=== PATIENT | female | born 1970 | race Caucasian/White ===

== ENCOUNTER → 2019-07-01 09:06 | Outpatient (CLI) | payer SELFPAY ==
--- NOTE | 2019-07-01 | DI.RAD.S_ITS ---
PROCEDURE: XR CHEST 2V INDICATIONS: Cough TECHNIQUE: 2 views of the chest were acquired. COMPARISON: None. FINDINGS: Surgical changes and devices: Cholecystectomy clips are seen on the lateral view. Lungs and pleura: Lungs are clear. No pleural effusions or pneumothorax. Mediastinum: Mediastinal contours are normal. Heart size is normal. Bones and chest wall: No suspicious bony abnormalities. Age-appropriate bony degenerative changes are seen. Soft tissues appear unremarkable. IMPRESSION: Unremarkable chest examination for age, without infiltrates. Dictated by: Dorian Gutierrez M.D. on 07/01/2019 at 8:46 Approved by: Dorian Gutierrez M.D. on 07/01/2019 at 8:47
== END ==
PROVIDERS: PCP Internal Medicine; Referring Provider Internal Medicine; Visit Provider Internal Medicine
DX: R05 Cough (principal)
CPT/HCPCS: 71046

== ENCOUNTER → 2019-11-16 09:35 | Outpatient (CLI) | payer OTHER, MEDICAID, SELFPAY ==
--- NOTE | 2019-11-16 | DI.MG.S_ITS ---
BILATERAL DIGITAL SCREENING MAMMOGRAM 3D/2D WITH CAD: 11/16/2019 CLINICAL: Routine screening. Family history of breast cancer. Comparison is made to exams dated: 02/10/2015 mammogram and 08/18/2008 mammogram - [facility] [address]. There are scattered fibroglandular elements in both breasts. Current study was also evaluated with a Computer Aided Detection (CAD) system. There are benign intramammary nodes in the right breast. No significant masses, calcifications, or other findings are seen in either breast. There has been no significant interval change. IMPRESSION: BENIGN There is no mammographic evidence of malignancy. A 1 year screening mammogram is recommended. This exam was interpreted at Station ID: [id number]. NOTE: For mammograms, a report in lay terms will be sent to the patient. Approximately 15% of breast malignancies will not be visualized mammographically. In the management of a palpable breast mass, a negative mammogram must not discourage biopsy of a clinically suspicious lesion. Electronically Signed By: Sunday cunningham/radha:11/18/2019 07:48:40 letter sent: Normal Exam ACR BI-RADS Category 2: Benign Finding(s) 3342F
== END ==
PROVIDERS: PCP Internal Medicine; Referring Provider Internal Medicine; Visit Provider Internal Medicine
DX: Z12.31 Encounter for screening mammogram for malignant neoplasm of breast (principal); Z80.3 Family history of malignant neoplasm of breast
CPT/HCPCS: 77063; 77067

== ENCOUNTER → 2019-11-29 09:19 | Outpatient (CLI) | payer OTHER, MEDICAID, SELFPAY | PROVIDERS: PCP Internal Medicine; Visit Provider Physician Assistant | DX: R30.0 Dysuria (principal) | CPT/HCPCS: 87077; 87086; 87186 ==

== ENCOUNTER → 2020-06-05 16:57 | Outpatient (CLI) | payer OTHER, MEDICAID, SELFPAY ==
[2020-06-05 17:37] LABS: COVID19 -Nasal RAPID Negative (Negative)
== END ==
PROVIDERS: Visit Provider Physician Assistant
DX: R05 Cough (principal); Z20.822 Contact with and (suspected) exposure to COVID-19
CPT/HCPCS: 87635

== ENCOUNTER → 2020-06-17 15:46 | Outpatient (CLI) | payer OTHER, MEDICAID, SELFPAY ==
[2020-06-17] MEDS: COVID-19 VACC, Ad26(JANSSEN)/PF 0.5 ML IM (15:57)
== END ==
PROVIDERS: Visit Provider Internal Medicine
DX: Z23 Encounter for immunization (principal)
CPT/HCPCS: 0031A; 91303

== ENCOUNTER → 2020-07-10 09:46 | Outpatient (CLI) | payer OTHER, MEDICAID, SELFPAY ==
[2020-07-10 10:06] LABS: Add Manual Diff / Slide Review NO; Basophils Absolute Auto 100 /uL (0-100); Basophils Percent Auto 0.9 % (0-2); Eosinophils Absolute Auto 200 /uL (0-450); Eosinophils Percent Auto 2.6 % (2-4); Hemoglobin 14.6 g/dL (12.0-16.0); Lymphocytes Absolute Auto 1600 /uL (1100-4500); Lymphocytes Percent Auto 26.7 % (25-40); Mean Corpuscular HGB Conc 33.2 % (30-36); Mean Corpuscular Hemoglobin 29.6 PG (26-34); Mean Corpuscular Volume 89.3 fL (80-100); Monocytes Absolute Auto 400 /uL (0-900); Monocytes Percent Auto 6.6 % (3-14); Neutrophils Absolute Auto 3900 /uL (1500-7000); Neutrophils Percent Auto 63.2 % (50-75); Platelet Count 281 X10^3/uL (150-400); Red Blood Cell Count 4.92 X10^6/uL (4.0-5.2); Red Cell Distribution Width 12.8 % (11.6-14.8); White Blood Cell Count 6.1 X10^3/uL (4.5-11.0)
[2020-07-10 10:36] LABS: Alanine Aminotransferase 31 IU/L (<35); Albumin 4.2 g/dL (3.5-5.0); Albumin Globulin Ratio 1.4 (1.0-2.8); Alkaline Phosphatase 80 U/L (38-126); Aspartate Aminotransferase 27 IU/L (14-36); BUN Creatinine Ratio 17.7 (6-22); Bilirubin Total 0.3 mg/dL (0.2-1.3); Blood Urea Nitrogen 14 mg/dL (7-17); Calcium 9.5 mg/dL (8.4-10.2); Carbon Dioxide 29 mmol/L (22-32); Chloride 105 mmol/L (98-107); Cholesterol 214 mg/dL (140-199); Estimated Glomerular Filt Rate > 60.0 mL/min (>60); Glucose 110 mg/dL (70-100); HDL Cholesterol 47 mg/dL (40-60); HEMOLYSIS < 15 (0-50); LDL Cholesterol Calculated 126 mg/dL (<100); Potassium 4.3 mmol/L (3.4-5.1); Sodium 142 mmol/L (137-145); Total Protein 7.2 g/dL (6.3-8.2); Triglycerides 204 mg/dL (35-150)
[2020-07-10 10:57] LABS: TSH w/ Reflex to FT4 1.03 uIU/mL (0.47-4.68)
== END ==
PROVIDERS: PCP Family Medicine; Referring Provider Family Medicine; Visit Provider Family Medicine
DX: I10 Essential (primary) hypertension (principal); Z12.31 Encounter for screening mammogram for malignant neoplasm of breast; Z13.220 Encounter for screening for lipoid disorders; Z13.228 Encounter for screening for other metabolic disorders; Z13.29 Encounter for screening for other suspected endocrine disorder; Z76.89 Persons encountering health services in other specified circumstances
CPT/HCPCS: 36415; 80053; 80061; 84443; 85025

== ENCOUNTER 2020-07-12 11:47 | Emergency (ER) | payer OTHER, MEDICAID, SELFPAY ==
[2020-07-12] VITALS (9 sets, daily range): BP systolic 139–175; BP diastolic 69–109; PULSE 58–83; RESP 11–20; TEMP 36.6; O2SAT 95–99; BMI 37.3
--- NOTE | 2020-07-12 11:52 | DI.RAD.S_ITS ---
PROCEDURE: XR CHEST 1V INDICATIONS: chest pain TECHNIQUE: One view of the chest was acquired. COMPARISON: [facility], CR, XR CHEST 2V, 07/01/2019, 9:05. FINDINGS: Surgical changes and devices: None. Lungs and pleura: Lungs are clear. No pleural effusions or pneumothorax. Mediastinum: Mediastinal contours appear normal. Heart size is normal. Bones and chest wall: No suspicious bony lesions. Overlying soft tissues appear unremarkable. IMPRESSION: No acute cardiopulmonary abnormality. Dictated by: Chris Evans M.D. on 07/12/2020 at 11:33 Approved by: Chris Evans M.D. on 07/12/2020 at 11:33
[2020-07-12 12:19] LABS: Add Manual Diff / Slide Review NO; Basophils Absolute Auto 100 /uL (0-100); Basophils Percent Auto 1.2 % (0-2); Eosinophils Absolute Auto 100 /uL (0-450); Eosinophils Percent Auto 2.3 % (2-4); Hematocrit 44.5 % (36-46); Lymphocytes Absolute Auto 2200 /uL (1100-4500); Mean Corpuscular HGB Conc 33.6 % (30-36); Mean Corpuscular Hemoglobin 29.8 PG (26-34); Mean Corpuscular Volume 88.6 fL (80-100); Monocytes Absolute Auto 500 /uL (0-900); Monocytes Percent Auto 8.4 % (3-14); Neutrophils Absolute Auto 3000 /uL (1500-7000); Neutrophils Percent Auto 51.1 % (50-75); Platelet Count 283 X10^3/uL (150-400); Red Blood Cell Count 5.02 X10^6/uL (4.0-5.2); Red Cell Distribution Width 12.7 % (11.6-14.8)
[2020-07-12 12:21] LABS: Prothrombin Time 10.9 SECONDS (10.1-12.7)
[2020-07-12 12:24] LABS: PTT Partial Thromboplastin Tim 33 SECONDS (26.4-36.2)
[2020-07-12 12:26] LABS: Alanine Aminotransferase 30 IU/L (<35); Albumin 4.4 g/dL (3.5-5.0); Albumin Globulin Ratio 1.3 (1.0-2.8); Alkaline Phosphatase 77 U/L (38-126); Aspartate Aminotransferase 26 IU/L (14-36); BUN Creatinine Ratio 22.4 (6-22); Bilirubin Total 0.3 mg/dL (0.2-1.3); Blood Urea Nitrogen 17 mg/dL (7-17); Calcium 9.8 mg/dL (8.4-10.2); Carbon Dioxide 26 mmol/L (22-32); Chloride 104 mmol/L (98-107); Creatine Kinase 36 U/L (30-135); Estimated Glomerular Filt Rate > 60.0 mL/min (>60); Globulin 3.4 g/dL (1.7-4.1); Glucose 100 mg/dL (70-100); HEMOLYSIS < 15 (0-50); Lipase 43 U/L (23-300); Potassium 3.9 mmol/L (3.4-5.1); Sodium 139 mmol/L (137-145); Total Protein 7.8 g/dL (6.3-8.2)
--- NOTE | 2020-07-12 12:26 | PC.NURSE ---
pt states her losartan was increased and she was started on HCTZ. woke up this morning with heaviness in chest, tingling and nunbness in all extremities and lightheadedness. appears well. in good color. bp 170/93 HR 70 NSR. lungs clear.
--- NOTE | 2020-07-12 12:34 | ED.CHESTPAIN ---
HPI - Chest Pain General Chief Complaint: Chest Pain Stated Complaint: Chest Pain, Tingling Hands/Feet, Face Feels Funny Time Seen by Provider: 07/12/20 12:33 Source: patient Mode of arrival: Ambulatory Limitations: no limitations History of Present Illness HPI narrative: Patient is a 50-year-old female history of hypertension noncompliant with medication presenting with chest discomfort. She was previously on losartan in did not feel well taking it so she stopped taking it in March. She was receding by a new primary care provider who started her on combination of losartan and hydrochlorothiazide. Is having some mild and chest discomfort prior to taking the medication 2 days ago but since then he has had worsening chest discomfort numbness tingling in extremities generally feeling weak. She denies any shortness of breath no fever or chills no dizziness lightheadedness or passing out. She says that her life is full of stressors. 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 She describes her chest pain as pressure points around the left side of her chest and sternum. They are Nonradiating. MD complaint: chest pain Duration: intermittent Onset: during rest and during exertion Pain location: substernal and left chest Quality: aching and dull Pain radiation: none Relieving factors: nothing Related Data Previous Rx's Medication Instructions Recorded losartan 50 mg-hydrochlorothiazide 1 tab PO DAILY #90 tab 07/10/20 12.5 mg tablet hydrochlorothiazide 12.5 mg PO DAILY #14 tab 07/12/20 Allergies Allergy/AdvReac Type Severity Reaction Status Date / Time hydrocodone [From Vicodin] AdvReac Intermediate GI Upset Verified 07/10/20 09:10 Review of Systems Review of Systems ROS Unobtainable: All systems reviewed & are unremarkable except as noted in HPI and below Constitutional Constitutional: Reports body ache(s), Denies chills, Denies headache(s) and Reports weakness Eyes Eyes: Denies change in vision, Denies eye discharge, Denies irritation and Denies loss of vision ENT Ears, Nose, Mouth, and Throat: Denies headache(s) Cardiovascular Cardiovascular: Reports as per HPI, Reports chest pain, Reports chest pain at rest, Denies irregular heart rhythm, Denies leg edema, Denies palpitations and Denies dyspnea on exertion Respiratory Respiratory: Denies cough and Denies dyspnea on exertion Gastrointestinal Gastrointestinal: Denies abdominal pain, Reports nausea and Denies vomiting Musculoskeletal Musculoskeletal: Denies back pain and Reports arthralgias (elbows) Integumentary/Breasts Skin/Breast: Denies pruritus, Denies erythema, Denies rash and Denies wounds Neurologic Neurologic: Denies headache(s), Denies loss of vision and Reports weakness Endocrine Endocrine: Denies palpitations Patient History Medical History UTI (urinary tract infection) Social History Smoking Status: Former smoker alcohol intake: current (4 drinks per week ) substance use type: does not use Smoking Status: Former smoker alcohol intake frequency: holidays/special occasions only Substance Use Type: does not use Exam Initial Vital Signs Initial Vital Signs: Vital Signs Temperature 97.8 F 07/12/20 11:50 Pulse Rate 77 07/12/20 11:50 Respiratory Rate 18 07/12/20 11:50 Blood Pressure 175/109 H 07/12/20 11:50 Pulse Oximetry 97 07/12/20 11:50 GENERAL: Alert pleasant 50-year-old female appears in high stress HEENT: Head atraumatic,EOMI, pupils reactive, face symmetric, moist mucous membranes CARDIOVASCULAR: Regular rate and rhythm without murmurs, rubs or gallops. RESPIRATORY: Breath sounds equal bilaterally, no wheezes rales or rhonchi. ABDOMEN: Soft, nontender. Normoactive bowel sounds all 4 quadrants. No guarding or rebound. EXTREMITIES: Normal range of motion, no clubbing or edema. Neurovascularly intact NEUROLOGICAL: Alert and oriented x4.Normal gait and speech. Cranial nerves II through XII grossly intact. SKIN: Warm, dry, no laceration, no petechiae, no rashes or lesions. Scores GCS Renetta coma scale eye opening: Spontaneous [place] coma scale verbal response: Orientated Renetta coma scale motor response: Obey commands Renetta coma scale total score: 15 HEART Score Heart Score history: Slightly Suspicious Heart Score EKG: Normal Heart Score Age: 45-64 years old Heart Score risk factors: 1-2 risk factors Heart Score troponin: < or = to normal limit Heart Score Total: 2 Course Orders Ordered: ED Orders 07/12/20 11:52 XR chest 1V Stat EKG-12 Lead Stat 07/12/20 12:00 Complete Blood Count AUTO DIFF Stat Comprehensive Metabolic Panel Stat Lipase Stat Partial Thromboplastin Time Stat Prothrombin Time INR Stat Troponin & CK Cardiac Panel Stat Discontinued Medications Sodium Chloride (Normal Saline 0.9%) 1,000 mls @ 1,000 mls/hr IV BOLUS ONE Stop: 07/12/20 13:57 Last Admin: 07/12/20 13:02 Dose: 1,000 mls/hr Documented by: MARIELA Vital Signs Vital signs: Vital Signs - 8 hr 07/12/20 11:50 07/12/20 11:53 07/12/20 12:00 Temperature 97.8 F Pulse Rate 77 83 77 Respiratory Rate 18 18 15 Blood Pressure 175/109 H 175/109 H 170/93 H Pulse Oximetry 97 98 97 07/12/20 12:30 07/12/20 13:00 07/12/20 13:30 Temperature Pulse Rate 63 65 63 Respiratory Rate 11 L 13 14 Blood Pressure 142/72 H 139/69 Pulse Oximetry 95 96 97 07/12/20 13:31 07/12/20 14:00 07/12/20 14:01 Temperature Pulse Rate 59 L 64 58 L Respiratory Rate 17 20 14 Blood Pressure 160/70 H 160/70 H Pulse Oximetry 99 98 98 MDM - Chest Pain Lab Data Attestation: I reviewed the patient's lab results. Result diagrams: 07/12/20 12:00 07/12/20 12:00 Labs: Lab Results 07/12/20 07/12/20 07/12/20 Range/Units 12:00 12:00 12:00 WBC 6.0 (4.5-11.0) X10^3/uL RBC 5.02 (4.0-5.2) X10^6/uL Hgb 15.0 (12.0-16.0) g/dL Hct 44.5 (36-46) % MCV 88.6 (80-100) fL MCH 29.8 (26-34) PG MCHC 33.6 (30-36) % RDW 12.7 (11.6-14.8) % Plt Count 283 (150-400) X10^3/uL Neut % (Auto) 51.1 (50-75) % Lymph % (Auto) 37.0 (25-40) % Daggett % (Auto) 8.4 (3-14) % Eos % (Auto) 2.3 (2-4) % Baso % (Auto) 1.2 (0-2) % Neut # (Auto) 3000 (2345-9888) /uL Lymph # (Auto) 2200 (0485-6170) /uL Daggett # (Auto) 500 (0-900) /uL Eos # (Auto) 100 (0-450) /uL Baso # (Auto) 100 (0-100) /uL PT 10.9 (10.1-12.7) SECONDS INR 1.0 (0.9-1.3) APTT 33 (26.4-36.2) SECONDS Sodium 139 (137-145) mmol/L Potassium 3.9 (3.4-5.1) mmol/L Chloride 104 (98-107) mmol/L Carbon Dioxide 26 (22-32) mmol/L BUN 17 (7-17) mg/dL Creatinine 0.76 (0.52-1.04) mg/dL Estimated GFR > 60.0 (>60) mL/min BUN/Creatinine Ratio 22.4 H (6-22) Glucose 100 (70-100) mg/dL Calcium 9.8 (8.4-10.2) mg/dL Total Bilirubin 0.3 (0.2-1.3) mg/dL AST 26 (14-36) IU/L ALT 30 (<35) IU/L Alkaline Phosphatase 77 (38-126) U/L Total Creatine Kinase 36 (30-135) U/L CK-MB (CK-2) TNP CK-MB (CK-2) Rel Index TNP Troponin I < 0.012 (0.01-0.034) ng/mL Total Protein 7.8 (6.3-8.2) g/dL Albumin 4.4 (3.5-5.0) g/dL Globulin 3.4 (1.7-4.1) g/dL Albumin/Globulin Ratio 1.3 (1.0-2.8) Lipase 43 (23-300) U/L Imaging Data Chest x-ray: Radiologist's Impression: PROCEDURE: XR CHEST 1V INDICATIONS: chest pain TECHNIQUE: One view of the chest was acquired. COMPARISON: [facility], CR, XR CHEST 2V, 07/01/2019, 9:05. FINDINGS: Surgical changes and devices: None. Lungs and pleura: Lungs are clear. No pleural effusions or pneumothorax. Mediastinum: Mediastinal contours appear normal. Heart size is normal. Bones and chest wall: No suspicious bony lesions. Overlying soft tissues appear unremarkable. IMPRESSION: No acute cardiopulmonary abnormality. Dictated by: Chris Evans M.D. on 07/12/2020 at 11:33 ECG Data Attestation: I personally reviewed and interpreted this ECG as follows: Prior ECG tracings: available for review Interpretation: Normal sinus rhythm rate 68 p.r. interval 180 QRS [address] changes or T-wave inversions MDM Narrative Medical decision making narrative: Patient is chest pain and other symptoms are likely related to blood pressure medication and stress. She is feeling better after normal saline blood pressure is variable. She is hesitant to take any more medication however at this time I will separate losartan hydrochlorothiazide and recommend that she take hydrochlorothiazide and see if she has any type of reaction. Discharge Plan Departure Patient Disposition: Home Clinical Impression: Medication reaction Qualifiers: Encounter type: initial encounter Qualified Code(s): T50.905A - Adverse effect of unspecified drugs, medicaments and biological substances, initial encounter Hypertension Qualifiers: Hypertension type: unspecified Qualified Code(s): I10 - Essential (primary) hypertension Instructions: DI for Atypical Chest Pain Activity Restrictions/Additional Instructions: *You have been diagnosed with atypical chest pain *What to do: At this time your feeling are likely related to medication and lots of stress. If you do not want to take high blood pressure medication I recommend diet and exercise. *Continue to take medications as directed Hydrochlorothiazide 12.5 mg once daily-->SENT TO [facility] *Follow up with your primary care provider in 2-3 days *Return to ER if you should have chest pain, shortness of breath dizziness lightheadedness or any new, worsening or concerning symptoms Prescriptions: New hydrochlorothiazide 12.5 mg tablet 12.5 mg PO DAILY Qty: 14 RF: 0 No Action losartan-hydrochlorothiazide 50-12.5 mg tablet 1 tab PO DAILY Qty: 90 RF: 1 Referrals: Chris Law, [Primary Care Provider] -
[2020-07-12 12:38] LABS: Troponin I < 0.012 ng/mL (0.01-0.034)
[2020-07-12] MEDS: SODIUM CHLORIDE 0.9% 1,000 ML 1000 ML IV (13:02)
--- NOTE | 2020-07-24 16:07 | PC.NURSE ---
late entry, NS infusion stopped with IV stop time of 1430
== END 2020-07-12 14:32 | disposition home or self-care (01) ==
PROVIDERS: Emergency Provider Emergency Medicine; PCP Family Medicine
DX: R07.89 Other chest pain (principal); I10 Essential (primary) hypertension; T50.2X5A Adverse effect of carbonic-anhydrase inhibitors, benzothiadiazides and other diuretics, initial encounter
CPT/HCPCS: 36415; 71045; 80053; 82550; 83690; 84484; 85025; 85610; 85730; 93005; 96360; 99284

== ENCOUNTER 2020-08-11 07:30 | Outpatient (RCR) | payer OTHER, MEDICAID, SELFPAY ==
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
--- NOTE | 2020-06-10 08:17 | PT.OPPOC ---
Physical, Occupational & Speech Therapy At [facility] Current Diagnoses Other deformities of toe(s) (acquired), right foot (06/10/20) Pain in right foot (06/10/20) Pain in left foot (06/10/20) Difficulty in walking, not elsewhere classified (06/10/20) Abnormal posture (06/10/20) Weakness (06/10/20) Visit Care Team Role Provider Type Doctor Diaz, Primary Care Provider Non-Staff Specialty: Medical Address: Phone: Fax: Email: Dmitry Cevallos DPM Attending Provider Non-Staff Referring Provider Specialty: Podiatry Address: [address] [place] [address], [phone] Email: Plan Of Care PT-OP-T Assessment and Plan Start: 04/02/20 15:06 Freq: Status: Active Protocol: Document 06/10/20 07:28 [facility] (Rec: 06/10/20 08:17 [facility] [id number]) Physical Therapy Assessment Goals activities Short Term Goal (STG) Pt will be able to descend stairs B without inc pain.\ 06/10-n/t STG Duration 07/11/20 Filament Cutter Goal (LTG) Pt will be able to walk and hike on any surfaces without inc in pain greater than 3/10 in B feet. 3/3-has done yard work & walking for short distances only LTG Duration 08/10/20 strength Short Term Goal (STG) Pt will be indep with HEP STG Duration achieved Prison Goal (LTG) Pt will score 5/5 in hip, ankle, and knee strengthen and 3/5 for LPM to show improved stability in order to allow her to participate in typical activities without increased pain. 06/10-progress as needed LTG Duration 08/10/20 balance Short Term Goal (STG) Pt will be able to SLS B without lat lean or arms for balance for 15 sec B STG Duration achieved Prison Goal (LTG) Pt will be able to SLS B without lat lean or use of arms for balance for 30 sec B /3-improving LTG Duration 08/10/20 FAAM Impairment 45/84 Short Term Goal (STG) Pt will score at least 55/84 to show improved functional ability. 06/10-n/t STG Duration 07/11/20 Prison Goal (LTG) Pt will score at least 74/84 to show improved functional ability. LTG Duration 08/10/20 Assessment Summary Assessment Pt did well with exercises but did require cuieng for squats and lunges for form and was encouraged to do self massage to tib ant along w/calf stretching. She is making good progress with strength and ROM especially L side with still limitaiton on R ankle likely d/t surgery. She is c/o intermittant pain vs consistant painand would bneeift from cont PT to cont to work on ankle & foot mobility Physical Therapy Plan Frequency and Duration Frequency of Treatment 1-2x Duration of Treatment 2 months Plan of Care Start Date 06/10/20 Plan of Care End Date 08/10/20 Therapeutic Interventions Therapeutic Interventions Aquatic Therapy,Balance Training,Gait Training,Home Exercise Program,Joint Mobilizations,Manual Therapy, Neuromuscular Re-education, Patient/Caregiver Education, Self-Care/Home Management,Soft Tissue Mobilization,Taping, Therapeutic Activities, Therapeutic Exercises Modalities Cold Pack/Ice Massage,Electric Stimulation,Hot Packs, Infrared Therapy,Iontophoresis ,Ultrasound Next Visit Focus/Plan Next Note Type Treatment Note Next Visit Plan review squats and lunges , cont to work on hip stability & balance, work on manual & work on push off & gait mechanics Plan of Care Dates Plan of Care Start Date 06/10/20 Plan of Care End Date 08/10/20 Electronically Signed by: Mari Thapa, PT 06/10/20 1161 Please Sign and Return: I have reviewed this Plan of Care and certify that the skilled therapy services above are required to meet the patient?s needs. Physician Signature Date Printed Name and Credentials Clinical Instructor Signature Printed Name and Credentials
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
--- NOTE | 2020-08-11 08:58 | PT.OPPOC ---
Physical, Occupational & Speech Therapy At [facility] Current Diagnoses Other deformities of toe(s) (acquired), right foot (08/11/20) Pain in right foot (08/11/20) Pain in left foot (08/11/20) Difficulty in walking, not elsewhere classified (08/11/20) Abnormal posture (08/11/20) Weakness (08/11/20) Visit Care Team Role Provider Type Doctor Diaz, Primary Care Provider Non-Staff Specialty: Medical Address: Phone: Fax: Email: Dmitry Cevallos DPM Attending Provider Non-Staff Referring Provider Specialty: Podiatry Address: [address] [place] [address], [phone] Email: Plan Of Care PT-OP-T Assessment and Plan Start: 04/02/20 15:06 Freq: Status: Active Protocol: Document 08/11/20 07:28 [facility] (Rec: 08/11/20 08:18 [facility] [id number]) Physical Therapy Assessment Goals activities Short Term Goal (STG) Pt will be able to descend stairs B without inc pain.\ 3/3-n/t STG Duration achieved-just feels unsteady Half-Way Goal (LTG) Pt will be able to walk and hike on any surfaces without inc in pain greater than 3/10 in B feet. 3/3-has done yard work & walking for short distances only LTG Duration has gone for short walks, down hill unsteady , about a 3-6/ 10 depending strength Short Term Goal (STG) Pt will be indep with HEP STG Duration achieved Out Of School Hours Care Worker Goal (LTG) Pt will score 5/5 in hip, ankle, and knee strengthen and 3/5 for LPM to show improved stability in order to allow her to participate in typical activities without increased pain. 3/3-progress as needed LTG Duration improved significntly to cont HEP balance Short Term Goal (STG) Pt will be able to SLS B without lat lean or arms for balance for 15 sec B STG Duration achieved Half-Way Goal (LTG) Pt will be able to SLS B without lat lean or use of arms for balance for 30 sec B 3/3-improving LTG Duration L achieved, R about 15 sec FAAM Impairment 45/84 Short Term Goal (STG) Pt will score at least 55/84 to show improved functional ability. 3-n/t STG Duration achieved Half-Way Goal (LTG) Pt will score at least 74/84 to show improved functional ability. LTG Duration 72/84 improved Assessment Summary Assessment Pt has made a lot of improvement towards goals and is progressing well. She is to dc at this time to [facility]. She is encouraged to cont walking and w/activity. She has tightness still in ant ramos and is enocuraged to do STM. Exercises reviewed with important notes re: form Physical Therapy Plan Frequency and Duration Frequency of Treatment 1x/Week Duration of Treatment 1 day Plan of Care Start Date 08/11/20 Plan of Care End Date 08/11/20 Therapeutic Interventions Therapeutic Interventions Aquatic Therapy,Balance Training,Gait Training,Home Exercise Program,Joint Mobilizations,Manual Therapy, Neuromuscular Re-education, Patient/Caregiver Education, Self-Care/Home Management,Soft Tissue Mobilization,Taping, Therapeutic Activities, Therapeutic Exercises Modalities Cold Pack/Ice Massage,Electric Stimulation,Hot Packs, Infrared Therapy,Iontophoresis ,Ultrasound Discharge Physical Therapy Discharge Reasons Goals Met Plan of Care Dates Plan of Care Start Date 08/11/20 Plan of Care End Date 08/11/20 Electronically Signed by: Mari Thapa, PT 08/11/20 0858 Please Sign and Return: I have reviewed this Plan of Care and certify that the skilled therapy services above are required to meet the patient?s needs. Physician Signature Date Printed Name and Credentials Clinical Instructor Signature Printed Name and Credentials
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
== END 2020-08-12 13:14 | disposition home or self-care (01) ==
LOC: PHYS 07:30
PROVIDERS: Referring Provider Podiatrist Foot & Ankle Surgery; Visit Provider Podiatrist Foot & Ankle Surgery
DX: M20.5X1 Other deformities of toe(s) (acquired), right foot (principal); M79.672 Pain in left foot; M79.671 Pain in right foot; R53.1 Weakness; R26.2 Difficulty in walking, not elsewhere classified; R29.3 Abnormal posture
CPT/HCPCS: 97110; 97112; 97116; 97140; 97162; 97530; 97535

== ENCOUNTER → 2020-09-23 07:37 | Outpatient (CLI) | payer OTHER, MEDICAID, SELFPAY ==
[2020-09-23 08:23] LABS: COVID19 -Nasal RAPID Negative (Negative)
== END ==
PROVIDERS: PCP Family Medicine; Visit Provider Nurse Practitioner Family
DX: R05 Cough (principal); R09.81 Nasal congestion; R51.9 Headache, unspecified; Z20.822 Contact with and (suspected) exposure to COVID-19
CPT/HCPCS: 87635

== ENCOUNTER 2020-10-05 11:55 | Emergency (ER) | payer OTHER, SELFPAY ==
[2020-10-05 12:01] VITALS: BP 186/87; PULSE 86; RESP 20; TEMP 37.1; O2SAT 97
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
[2020-10-05] MEDS: KETOROLAC 30 MG/ML VIAL IM (13:18)
[2020-10-05 14:05] VITALS: BP 155/85; PULSE 60; RESP 18
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
== END 2020-10-05 14:22 | disposition home or self-care (01) ==
PROVIDERS: Emergency Provider Emergency Medicine; PCP Family Medicine
DX: S16.1XXA Strain of muscle, fascia and tendon at neck level, initial encounter (principal); R51.9 Headache, unspecified; R25.2 Cramp and spasm; V89.2XXA Person injured in unspecified motor-vehicle accident, traffic, initial encounter
CPT/HCPCS: 96372; 99283; J1885

== ENCOUNTER → 2021-02-11 12:08 | Outpatient (CLI) | payer OTHER, MEDICAID, SELFPAY ==
[2021-02-11 12:42] LABS: COVID19 -Nasal RAPID Negative (Negative)
== END ==
PROVIDERS: PCP Family Medicine; Visit Provider Physician Assistant
DX: Z20.822 Contact with and (suspected) exposure to COVID-19 (principal)
CPT/HCPCS: 87635

== ENCOUNTER → 2021-02-17 15:22 | Outpatient (CLI) | payer OTHER, MEDICAID, SELFPAY ==
--- NOTE | 2021-02-17 15:27 | DI.MRI.S_ITS ---
PROCEDURE: MR HEAD/BRAIN WO CON INDICATIONS: Headache, unspecified TECHNIQUE: Non-contrast axial T1 spin echo, axial T2 fast spin echo, sagittal and axial FLAIR, coronal T2 fast spin echo, axial gradient echo, axial diffusion and ADC through the brain. COMPARISON: None. FINDINGS: Image quality: Excellent. CSF spaces: Ventricles appear symmetric in size and shape. Basal cisterns are patent. No extra-axial fluid collections. Brain: No intracranial bleeds or mass effects. There is cerebral volume loss for age. There are periventricular and deep white matter chronic small vessel ischemic changes. Brainstem appears normal. Diffusion-weighted images show no acute ischemic insults. No chronic ischemic insults. Normal intravascular flow voids are present. Skull and face: Calvarial bone marrow is normal in signal. Orbits are normal. Sinuses: Moderate mucosal thickening seen involving the maxillary sinuses. Mild mucosal thickening is seen elsewhere within the paranasal sinuses. There is moderate right-sided and mild left-sided mastoid air cell fluid present. IMPRESSION: Unremarkable intracranial study, without an imaging explanation found for the patient's presenting history of headache. Focal maxillary sinus disease incidentally noted. Dictated by: Dorian Gutierrez M.D. on 02/17/2021 at 15:30 Approved by: Dorian Gutierrez M.D. on 02/17/2021 at 15:32
--- NOTE | 2021-02-17 15:30 | DI.MRI.S_ITS ---
PROCEDURE: MR CERVICAL SPINE WO CON INDICATIONS: Headache, unspecified TECHNIQUE: Noncontrast sagittal T1 spin echo and T2 fast spin echo, sagittal STIR, foraminal oblique sagittal T2 fast spin echo, and axial gradient echo or T2 fast spin echo through the cervical spine. COMPARISON: None. FINDINGS: Image quality: Excellent. Alignment and Curvature: Loss of normal cervical lordosis is present. Bone Marrow: Marrow demonstrates normal overall signal. Mild reactive signal within the endplates adjacent to the C2-C3, C5-C6, and C6-C7 intervertebral discs. Spinal Cord: Visualized spinal cord has normal size and signal. No cerebellar tonsillar herniation. Paraspinous Soft Tissues: No paravertebral masses. Prevertebral soft tissues are normal in thickness. Ill-defined high T2 intensity lesion within the right thyroid measuring roughly 11 mm. C2-C3: Mild disc height loss and desiccation. No significant canal, or foraminal stenosis. C3-C4: Mild disc height loss and desiccation. No significant canal, nor foraminal stenosis. C4-C5: Mild disc desiccation and diffuse disc bulge. Mild facet and uncovertebral hypertrophy. Mild canal stenosis. Mild bilateral foraminal stenosis. C5-C6: Moderate disc desiccation. Mild disc height loss and diffuse disc bulge. Mild facet and uncovertebral hypertrophy bilaterally. Moderate canal stenosis. Mild bilateral foraminal stenosis. C6-C7: Moderate disc height loss and desiccation. Moderate diffuse disc bulge. Mild facet and uncovertebral hypertrophy bilaterally. Moderate canal stenosis. Mild to moderate bilateral foraminal stenosis. C7-T1: Mild disc height loss and desiccation. No significant canal, or foraminal stenosis. IMPRESSION: 1. Multilevel degenerative disc and facet disease, as well as uncovertebral hypertrophy. 2. Multilevel canal stenoses, worst at C5-C6 and C6-C7, where there are moderate canal stenoses. 3. Multilevel foraminal stenoses, worst at C6-C7 where there are mild to moderate foraminal stenosis. 4. Right thyroid mass. Initial further assessment with ultrasound is recommended. Dictated by: Nadia Douglass M.D. on 02/17/2021 at 16:51 Approved by: Nadia Douglass M.D. on 02/17/2021 at 16:54
== END ==
PROVIDERS: PCP Family Medicine; Referring Provider Psychiatry & Neurology Neurology; Visit Provider Psychiatry & Neurology Neurology
DX: R51.9 Headache, unspecified (principal); M50.30 Other cervical disc degeneration, unspecified cervical region; M48.02 Spinal stenosis, cervical region; R93.89 Abnormal findings on diagnostic imaging of other specified body structures
CPT/HCPCS: 70551; 72141

== ENCOUNTER → 2021-03-02 15:27 | Outpatient (CLI) | payer OTHER, MEDICAID, SELFPAY ==
--- NOTE | 2021-03-02 15:28 | DI.US.S_ITS ---
PROCEDURE: US THYROID INDICATIONS: THYROID MASS TECHNIQUE: Real-time scanning was performed of the thyroid gland, with image documentation. COMPARISON: [facility], MR, MR CERVICAL SPINE WO CON, 02/17/2021, 16:15. FINDINGS: Right: Thyroid lobe measures 5.2 x 2.1 x 1.6 cm, and is homogeneous in echotexture. Left: Thyroid lobe measures 5.2 x 1.5 x 1.3 cm, and is homogenous in echotexture. Isthmus: 4.4 mm thick. Nodule number: 1 Location: Left mid thyroid Size: 0.5 x 0.3 x 0.5 cm. Composition: Solid Echogenicity: Hypoechoic Shape: wider than tall. Margins: Smooth Echogenic foci: None Total points: 4 ACR TI-RADS category: 4 Nodule number: 2 Location: Right mid thyroid Size: 0.7 x 0.6 x 0.8 cm. Composition: Solid Echogenicity: Isoechoic Shape: wider than tall. Margins: Smooth Echogenic foci: Punctate Total points: 6 ACR TI-RADS category: 4 Nodule number: 3 Location: Right inferior Size: 0.8 x 0.5 x 0.7 cm. Composition: Solid Echogenicity: Isoechoic Shape: wider than tall. Margins: Smooth Echogenic foci: Punctate Total points: 6 ACR TI-RADS category: 4 IMPRESSION: Subcentimeter thyroid nodules as above. Best practice guidelines suggest no follow-up is necessary. Approved by: Albino George M.D. on 03/03/2021 at 9:46
== END ==
PROVIDERS: PCP Family Medicine; Referring Provider Orthopaedic Surgery; Visit Provider Orthopaedic Surgery
DX: E04.2 Nontoxic multinodular goiter
CPT/HCPCS: 76536

== ENCOUNTER → 2021-03-25 13:22 | Outpatient (CLI) | payer OTHER, MEDICAID, SELFPAY ==
--- NOTE | 2021-03-25 | DI.MRI.S_ITS ---
PROCEDURE: MR SHOULDER LT WO CON INDICATIONS: Pain in left shoulder TECHNIQUE: Noncontrast oblique coronal T2 fast spin echo with fat saturation, oblique sagittal T1 spin echo and T2 fast spin echo with fat saturation, axial T1 spin echo and T2 fast spin echo with fat saturation through the shoulder. COMPARISON: [facility], CR, XR SHOULDER 2+ VIEWS LEFT, 03/17/2021, 15:33. FINDINGS: Image quality: Excellent. Rotator cuff: There is moderate grade partial bursal sided tearing of the supraspinatus tendon at the posterior footprint measuring 6 mm in anterior-posterior dimension superimposed on mild tendinosis. Fluid is seen tracking medially along the supraspinatus tendon sheath to the supraspinatus muscle belly. The infraspinatus and teres minor tendons are intact. The subscapularis tendon is intact. The rotator cuff musculature is normal in bulk. Bones and bursae: No acute trabecular bone injury. Glenohumeral articular cartilages are grossly maintained. There are [id number] degenerative changes at the acromioclavicular joint. A small amount of subacromial/subdeltoid bursal fluid is present. No significant glenohumeral effusion. Capsule and soft tissues: No displaced labral tear. The proximal biceps long head tendon is intact. There is partial effacement of the fat in the rotator interval. The anterior band of the inferior glenohumeral ligament is borderline in thickness. IMPRESSION: 1. Moderate grade partial bursal sided tearing of the supraspinatus tendon at the posterior footprint measuring 6 mm in anterior-posterior dimension superimposed on tendinosis. Fluid is seen tracking medially from the tear along the supraspinatus tendon to the supraspinatus muscle belly. 2. Mild to moderate acromioclavicular osteoarthrosis. 3. Small subacromial/subdeltoid bursal effusion or bursitis. 4. Partial effacement of the rotator interval fat and borderline thickening of the inferior glenohumeral ligament are nonspecific, but can be seen in the setting of the clinical syndrome of mild adhesive capsulitis. Dictated by: Joel Parra M.D. on 03/25/2021 at 15:50 Approved by: Joel Parra M.D. on 03/25/2021 at 15:59
== END ==
PROVIDERS: PCP Family Medicine; Referring Provider Orthopaedic Surgery; Visit Provider Orthopaedic Surgery
DX: M75.112 Incomplete rotator cuff tear or rupture of left shoulder, not specified as traumatic (principal); M19.012 Primary osteoarthritis, left shoulder; M75.52 Bursitis of left shoulder; M25.512 Pain in left shoulder
CPT/HCPCS: 73221

== ENCOUNTER → 2021-04-14 07:24 | Outpatient (CLI) | payer OTHER, MEDICAID, SELFPAY ==
--- NOTE | 2021-04-14 07:25 | DI.MRI.S_ITS ---
PROCEDURE: MR LUMBAR SPINE WO CON INDICATIONS: pain TECHNIQUE: Noncontrast sagittal T1 spin echo and T2 fast echo, sagittal STIR, axial T1 and T2 fast spin echo through the lumbar spine. In cases with scoliosis, additional coronal T2 fast spin echo may be performed. COMPARISON: None. FINDINGS: Image quality: Excellent. Alignment and Curvature: No plain films are available for comparison, for numbering purposes. Thus, for the purposes of this examination, 5 lumbar type vertebral bodies will be presumed, as denoted on the montage panel. This should be confirmed and correlated with plain films, prior to any lumbar spinal intervention. Bone Marrow: Marrow is of normal overall signal. No acute vertebral body compression fractures. Mild reactive signal within the endplates adjacent to the L3-L4, L4-L5, and L5-S1 intervertebral discs. Spinal Cord: Conus medullaris terminates at the mid L2 level. Visualized cord demonstrates normal signal and size. Paraspinous Soft Tissues: No paravertebral masses. T12-L1: Normal appearance. L1-L2: Mild disc height loss and desiccation. No significant canal, or foraminal stenosis. L2-L3: Normal appearance. L3-L4: Normal appearance. L4-L5: Minimal disc desiccation. Mild bilateral facet hypertrophy. No significant canal, or foraminal stenosis. L5-S1: Mild disc desiccation and diffuse disc bulge. Mild bilateral facet hypertrophy. No significant canal, or foraminal stenosis. IMPRESSION: 1. Multilevel degenerative disc and facet disease, causing no significant canal, or foraminal stenosis. No neural impingement. Dictated by: Nadia Douglass M.D. on 04/14/2021 at 8:54 Approved by: Nadia Douglass M.D. on 04/14/2021 at 8:56
--- NOTE | 2021-04-14 07:25 | DI.MRI.S_ITS ---
PROCEDURE: MR THORACIC SPINE WO CON INDICATIONS: pain TECHNIQUE: Noncontrast sagittal T1 spine echo and T2 fast spin echo, sagittal STIR, axial T1 and T2 fast spin echo through the thoracic spine. COMPARISON: None. FINDINGS: Image quality: Excellent. Alignment and Curvature: There is normal bony alignment. Bone Marrow: Marrow is of normal overall signal. No acute vertebral body compression fractures. Spinal Cord: Visualized spinal cord is normal in size and signal. Paraspinous Soft Tissues: No paravertebral masses. Miscellaneous: On axial images, central canal and foramina appear widely patent at all scanned levels. IMPRESSION: No significant canal, or foraminal stenosis. No neural impingement. No fracture. Dictated by: Nadia Douglass M.D. on 04/14/2021 at 8:54 Approved by: Nadia Douglass M.D. on 04/14/2021 at 8:54
== END ==
PROVIDERS: PCP Family Medicine; Referring Provider Family Medicine; Visit Provider Family Medicine
DX: M51.37 Other intervertebral disc degeneration, lumbosacral region (principal); M51.36 Other intervertebral disc degeneration, lumbar region; M54.2 Cervicalgia; M54.50 Low back pain, unspecified; G89.29 Other chronic pain
CPT/HCPCS: 72146; 72148

== ENCOUNTER → 2021-08-11 07:08 | Outpatient (CLI) | payer BC, SELFPAY ==
[2021-08-11 07:55] LABS: Add Manual Diff / Slide Review NO; Basophils Absolute Auto 0 /uL (0-100); Basophils Percent Auto 0.7 % (0-2); Eosinophils Absolute Auto 100 /uL (0-450); Eosinophils Percent Auto 2.3 % (2-4); Hematocrit 40.3 % (36-46); Hemoglobin 14.2 g/dL (12.0-16.0); Lymphocytes Absolute Auto 1700 /uL (1100-4500); Lymphocytes Percent Auto 26.2 % (25-40); Mean Corpuscular HGB Conc 35.1 % (30-36); Mean Corpuscular Hemoglobin 30.7 PG (26-34); Mean Corpuscular Volume 87.3 fL (80-100); Monocytes Absolute Auto 300 /uL (0-900); Monocytes Percent Auto 5.5 % (3-14); Neutrophils Absolute Auto 4200 /uL (1500-7000); Neutrophils Percent Auto 65.3 % (50-75); Platelet Count 239 X10^3/uL (150-400); Red Blood Cell Count 4.62 X10^6/uL (4.0-5.2); Red Cell Distribution Width 12.7 % (11.6-14.8); White Blood Cell Count 6.4 X10^3/uL (4.5-11.0)
[2021-08-11 08:09] LABS: Alanine Aminotransferase 32 IU/L (<35); Albumin 3.8 g/dL (3.5-5.0); Albumin Globulin Ratio 1.2 (1.0-2.8); Alkaline Phosphatase 78 U/L (38-126); Aspartate Aminotransferase 27 IU/L (14-36); BUN Creatinine Ratio 17.9 (6-22); Bilirubin Total 0.3 mg/dL (0.2-1.3); Blood Urea Nitrogen 14 mg/dL (7-17); Calcium 8.8 mg/dL (8.4-10.2); Carbon Dioxide 30 mmol/L (22-32); Chloride 104 mmol/L (98-107); Cholesterol 177 mg/dL (140-199); Estimated Glomerular Filt Rate > 60 mL/min (>60); Globulin 3.2 g/dL (1.7-4.1); Glucose 109 mg/dL (70-100); HDL Cholesterol 42 mg/dL (40-60); HEMOLYSIS < 15 (0-50); LDL Cholesterol Calculated 79 mg/dL (<100); Potassium 3.6 mmol/L (3.4-5.1); Sodium 141 mmol/L (137-145); Triglycerides 280 mg/dL (35-150)
[2021-08-11 08:22] LABS: Free T3, Triiodothyronine Free 3.77 pg/mL (2.77-5.27); Free T4, Direct Thyroxine 0.92 ng/dL (0.78-2.19)
[2021-08-11 08:35] LABS: Thyroid Stimulating Hormone 1.16 uIU/mL (0.47-4.68)
== END ==
PROVIDERS: PCP Family Medicine; Referring Provider Family Medicine; Visit Provider Family Medicine
DX: E04.1 Nontoxic single thyroid nodule (principal); Z13.220 Encounter for screening for lipoid disorders
CPT/HCPCS: 36415; 80053; 80061; 84439; 84443; 84481; 85025

== ENCOUNTER → 2021-08-18 13:44 | Outpatient (CLI) | payer BC, SELFPAY ==
[2021-08-18 14:26] LABS: COVID19 -Nasal RAPID Negative (Negative)
== END ==
PROVIDERS: PCP Family Medicine; Visit Provider Nurse Practitioner Family
DX: Z20.822 Contact with and (suspected) exposure to COVID-19 (principal)
CPT/HCPCS: 87635

== ENCOUNTER 2021-09-03 14:57 | Emergency (ER) | payer OTHER, SELFPAY ==
[2021-09-03] VITALS (10 sets, daily range): BP systolic 162–189; BP diastolic 77–91; PULSE 62–91; RESP 16; TEMP 36.2; O2SAT 97–100; BMI 37.2
--- NOTE | 2021-09-03 15:24 | DI.RAD.S_ITS ---
PROCEDURE: XR CHEST 1V INDICATIONS: chest pain TECHNIQUE: One view of the chest was acquired. COMPARISON: [facility], CR, XR CHEST 1V, 07/12/2020, 12:08. FINDINGS: Surgical changes and devices: None. Lungs and pleura: Lungs are clear. No pleural effusions or pneumothorax. Mediastinum: Mediastinal contours appear normal. Heart size is normal. Bones and chest wall: No suspicious bony lesions. Overlying soft tissues appear unremarkable. IMPRESSION: No acute pulmonary process. Dictated by: Kirsty Sanford M.D. on 09/03/2021 at 15:58 Approved by: Kirsty Sanford M.D. on 09/03/2021 at 15:58
[2021-09-03 16:04] LABS: Add Manual Diff / Slide Review NO; Basophils Absolute Auto 0 /uL (0-100); Basophils Percent Auto 0.3 % (0-2); Eosinophils Absolute Auto 100 /uL (0-450); Hematocrit 41.3 % (36-46); Hemoglobin 14.4 g/dL (12.0-16.0); Lymphocytes Absolute Auto 1900 /uL (1100-4500); Lymphocytes Percent Auto 26.8 % (25-40); Mean Corpuscular Hemoglobin 30.5 PG (26-34); Mean Corpuscular Volume 87.2 fL (80-100); Monocytes Absolute Auto 500 /uL (0-900); Monocytes Percent Auto 6.7 % (3-14); Neutrophils Absolute Auto 4500 /uL (1500-7000); Neutrophils Percent Auto 64.2 % (50-75); Platelet Count 275 X10^3/uL (150-400); Red Blood Cell Count 4.73 X10^6/uL (4.0-5.2); Red Cell Distribution Width 12.7 % (11.6-14.8)
[2021-09-03 16:19] LABS: Alanine Aminotransferase 46 IU/L (<35); Albumin 4.1 g/dL (3.5-5.0); Albumin Globulin Ratio 1.2 (1.0-2.8); Alkaline Phosphatase 84 U/L (38-126); Aspartate Aminotransferase 37 IU/L (14-36); BUN Creatinine Ratio 13.6 (6-22); Bilirubin Total 0.5 mg/dL (0.2-1.3); Blood Urea Nitrogen 11 mg/dL (7-17); Calcium 9.1 mg/dL (8.4-10.2); Carbon Dioxide 29 mmol/L (22-32); Chloride 103 mmol/L (98-107); Creatine Kinase 30 U/L (30-135); Estimated Glomerular Filt Rate > 60 mL/min (>60); Globulin 3.4 g/dL (1.7-4.1); Glucose 95 mg/dL (70-100); HEMOLYSIS < 15 (0-50); Lipase 36 U/L (23-300); Potassium 3.8 mmol/L (3.4-5.1); Sodium 139 mmol/L (137-145); Total Protein 7.5 g/dL (6.3-8.2)
[2021-09-03 16:28] LABS: Troponin I < 0.012 ng/mL (0.01-0.034)
[2021-09-03 19:09] LABS: COVID19 -Nasal RAPID Negative (Negative)
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
[2021-09-03 20:21] LABS: Creatine Kinase 29 U/L (30-135)
[2021-09-03 20:34] LABS: Troponin I < 0.012 ng/mL (0.01-0.034)
== END 2021-09-03 21:41 | disposition home or self-care (01) ==
PROVIDERS: Emergency Medicine; Emergency Provider Emergency Medicine; PCP Family Medicine
DX: I10 Essential (primary) hypertension (principal); R07.9 Chest pain, unspecified; Z20.822 Contact with and (suspected) exposure to COVID-19
CPT/HCPCS: 36415; 71045; 80053; 82550; 83690; 83735; 84484; 85025; 87635; 93005; 99284; C9803

== ENCOUNTER → 2021-09-29 15:57 | Outpatient (CLI) | payer OTHER, SELFPAY ==
--- NOTE | 2021-09-29 | DI.US.S_ITS ---
PROCEDURE: US THYROID INDICATIONS: INCIDENTALLY FOUND THYROID NODULE TECHNIQUE: Real-time scanning was performed of the thyroid gland, with image documentation. COMPARISON: [facility], US, US THYROID, 03/02/2021, 16:17. FINDINGS: Right: Thyroid lobe measures 5.4 x 1.8 x 1.8 cm, and is homogeneous in echotexture. Left: Thyroid lobe measures 4.9 x 1.5 x 1.6 cm, and is homogenous in echotexture. Isthmus: 3.0 mm thick. Nodule number: 1 Location: Left mid Size: 0.6 x 0.3 x 0.6 cm. No significant change Composition: Predominantly solid. Echogenicity: Hypoechoic Shape: wider than tall. Margins: Smooth Echogenic foci: None Total points: 4 ACR TI-RADS category: Moderately suspicious Nodule number: 2 Location: Right mid Size: 0.7 x 0.5 x 0.7 cm. No significant change Composition: Predominantly solid Echogenicity: Hypoechoic Shape: wider than tall. Margins: Smooth Echogenic foci: Internal punctate echogenic foci Total points: 7 ACR TI-RADS category: Highly suspicious Nodule number: 3 Location: Right inferior Size: 0.8 x 0.5 x 0.6 cm. No significant change. Composition: Solid Echogenicity: Predominantly hypoechoic Shape: wider than tall. Margins: Smooth Echogenic foci: Internal punctate echogenic foci Total points: 7 ACR TI-RADS category: Highly suspicious IMPRESSION: Similar appearance of bilateral thyroid nodules. None meet criteria for FNA recommendation. Recommend continued followup ultrasound as detailed below. ACR TI-RADS definitions and recommendations: TI-RADS 1 (benign): 0 points. FNA not needed. TI-RADS 2 (not suspicious): 2 points. FNA not needed. TI-RADS 3 (mildly suspicious): 3 points. * FNA if 2.5 cm or larger, follow up if 1.5 cm or larger (at 1, 3, and 5 years). TI-RADS 4 (moderately suspicious): 4-6 points. * FNA if 1.5 cm or larger, follow up if 1 cm or larger (at 1, 2, 3, and 5 years). TI-RADS 5 (highly suspicious): 7 points or more. * FNA if 1 cm or larger, follow up if 0.5 cm or larger (every year for 5 years). Dictated by: Aaron DAVEY Interpreted: Joel Olmedo MD on 09/29/2021 at 16:54 Transcribed by: RENÉ on 09/29/2021 at 16:56 Approved by: Joel Olmedo M.D. on 09/29/2021 at 18:57
--- NOTE | 2021-09-29 15:58 | DI.MG.S_ITS ---
BILATERAL DIGITAL SCREENING MAMMOGRAM 3D/2D WITH CAD: 09/29/2021 CLINICAL: Routine screening. Family history of breast cancer. Comparison is made to exams dated: 11/16/2019 mammogram - [facility] and 02/10/2015 mammogram - [facility] [address]. There are scattered fibroglandular elements in both breasts. Current study was also evaluated with a Computer Aided Detection (CAD) system. There are benign intramammary nodes in the right breast. No significant masses, calcifications, or other findings are seen in either breast. There has been no significant interval change. IMPRESSION: BENIGN There is no mammographic evidence of malignancy. A 1 year screening mammogram is recommended. This exam was interpreted at Station ID: [id number]. NOTE: For mammograms, a report in lay terms will be sent to the patient. Approximately 15% of breast malignancies will not be visualized mammographically. In the management of a palpable breast mass, a negative mammogram must not discourage biopsy of a clinically suspicious lesion. Electronically Signed By: Joel serrano/radha:09/30/2021 09:17:16 letter sent: Normal Exam ACR BI-RADS Category 2: Benign Finding(s) 3342F
== END ==
PROVIDERS: PCP Family Medicine; Referring Provider Family Medicine; Visit Provider Family Medicine
DX: Z12.31 Encounter for screening mammogram for malignant neoplasm of breast (principal); Z80.3 Family history of malignant neoplasm of breast; E04.2 Nontoxic multinodular goiter
CPT/HCPCS: 76536; 77063; 77067

== ENCOUNTER 2022-03-11 02:43 | Emergency (ER) | payer OTHER, SELFPAY ==
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
[2022-03-11 03:00] VITALS: BP 201/101; PULSE 78; RESP 16; TEMP 36.7; O2SAT 99
--- NOTE | 2022-03-11 03:07 | DI.RAD.S_ITS ---
PROCEDURE: XR CHEST 1V INDICATIONS: chest pain TECHNIQUE: One view of the chest was acquired. COMPARISON: [facility], CR, XR CHEST 1V, 07/12/2020, 12:08. [facility], CR, XR CHEST 1V, 09/03/2021, 15:36. FINDINGS: Surgical changes and devices: None. Lungs and pleura: Lungs are clear. No pleural effusions or pneumothorax. Mediastinum: Mediastinal contours appear normal. Heart size is normal. There is a prominent pericardial fat pad in the right cardiophrenic angle. Bones and chest wall: No suspicious bony lesions. Overlying soft tissues appear unremarkable. IMPRESSION: No acute cardiopulmonary disease. Dictated by: Mignon Rosales M.D. on 03/11/2022 at 8:20 Approved by: Mignon Rosales M.D. on 03/11/2022 at 8:21
[2022-03-11] MEDS: LORazepam 2 MG/ML INJ 0.5 MG IV (03:13)
[2022-03-11 03:22] LABS: Add Manual Diff / Slide Review NO; Basophils Absolute Auto 100 /uL (0-100); Basophils Percent Auto 1.5 % (0-2); Eosinophils Absolute Auto 200 /uL (0-450); Eosinophils Percent Auto 2.5 % (2-4); Hematocrit 43.3 % (36-46); Hemoglobin 14.5 g/dL (12.0-16.0); Lymphocytes Absolute Auto 2300 /uL (1100-4500); Lymphocytes Percent Auto 31.8 % (25-40); Mean Corpuscular HGB Conc 33.5 % (30-36); Mean Corpuscular Hemoglobin 29.4 PG (26-34); Mean Corpuscular Volume 87.7 fL (80-100); Monocytes Absolute Auto 500 /uL (0-900); Monocytes Percent Auto 7.4 % (3-14); Neutrophils Absolute Auto 4200 /uL (1500-7000); Neutrophils Percent Auto 56.8 % (50-75); Platelet Count 274 X10^3/uL (150-400); Red Blood Cell Count 4.94 X10^6/uL (4.0-5.2); Red Cell Distribution Width 12.6 % (11.6-14.8); White Blood Cell Count 7.4 X10^3/uL (4.5-11.0)
[2022-03-11 03:28] LABS: Alanine Aminotransferase 45 IU/L (<35); Albumin Globulin Ratio 1.2 (1.0-2.8); Alkaline Phosphatase 90 U/L (38-126); Aspartate Aminotransferase 31 IU/L (14-36); BUN Creatinine Ratio 15.2 (6-22); Bilirubin Total 0.3 mg/dL (0.2-1.3); Blood Urea Nitrogen 12 mg/dL (7-17); Calcium 9.2 mg/dL (8.4-10.2); Carbon Dioxide 29 mmol/L (22-32); Chloride 106 mmol/L (98-107); Estimated Glomerular Filt Rate > 60 mL/min (>60); Globulin 3.4 g/dL (1.7-4.1); Glucose 109 mg/dL (70-100); HEMOLYSIS < 15 (0-50); Sodium 140 mmol/L (137-145); Total Protein 7.4 g/dL (6.3-8.2)
[2022-03-11 03:39] LABS: Troponin I < 0.012 ng/mL (0.01-0.034)
[2022-03-11 03:44] VITALS: BP 182/84; PULSE 72; RESP 14; O2SAT 98
[2022-03-11 04:04] LABS: Thyroid Stimulating Hormone 3.18 uIU/mL (0.47-4.68)
[2022-03-11 05:14] VITALS: BP 177/80; PULSE 65; RESP 16; O2SAT 97
== END 2022-03-11 05:18 | disposition home or self-care (01) ==
PROVIDERS: Emergency Provider Emergency Medicine; PCP Family Medicine
DX: F43.0 Acute stress reaction (principal); F44.9 Dissociative and conversion disorder, unspecified; R07.9 Chest pain, unspecified; R10.30 Lower abdominal pain, unspecified
CPT/HCPCS: 36415; 71045; 80053; 81003; 84443; 84484; 85025; 93005; 96374; 99284; J2060

== ENCOUNTER → 2022-03-19 17:10 | Outpatient (CLI) | payer OTHER, SELFPAY ==
[2022-03-19 18:34] LABS: Influenza A - CEPHEID Flu A NEGATIVE (NEGATIVE); Influenza B - CEPHEID Flu B NEGATIVE (NEGATIVE); Respiratory Syncytial Virus Negative (Negative)
[2022-03-19 18:35] LABS: COVID-19 CEPHEID 4-PLEX PCR Negative (Negative)
== END ==
PROVIDERS: PCP Family Medicine; Visit Provider Nurse Practitioner Family
DX: B97.89 Other viral agents as the cause of diseases classified elsewhere (principal); J02.8 Acute pharyngitis due to other specified organisms; J06.9 Acute upper respiratory infection, unspecified; Z20.822 Contact with and (suspected) exposure to COVID-19
CPT/HCPCS: 0241U; 87070

== ENCOUNTER → 2022-05-15 12:52 | Outpatient (CLI) | payer OTHER, SELFPAY ==
--- NOTE | 2022-05-15 12:53 | DI.RAD.S_ITS ---
P focal infiltrateROCEDURE: XR CHEST 2V INDICATIONS: cough TECHNIQUE: 2 views of the chest were acquired. COMPARISON: [facility], CR, XR CHEST 1V, 03/11/2022, 3:18. FINDINGS: Surgical changes and devices: None. Lungs and pleura: Diffuse chronic interstitial changes without focal infiltrate, pleural effusion or pneumothorax Mediastinum: Mediastinal contours are normal. Heart size is enlarged. Bones and chest wall: No suspicious bony abnormalities. Soft tissues appear unremarkable. IMPRESSION: Cardiomegaly and chronic interstitial changes without focal infiltrate Approved by: Albino George M.D. on 05/15/2022 at 13:09
== END ==
PROVIDERS: PCP Family Medicine; Referring Provider Nurse Practitioner Family; Visit Provider Nurse Practitioner Family
DX: I51.7 Cardiomegaly (principal); R05.9 Cough, unspecified
CPT/HCPCS: 71046

== ENCOUNTER → 2022-07-01 08:14 | Outpatient (CLI) | payer OTHER, SELFPAY ==
--- NOTE | 2022-07-06 08:08 | PM.PFT.1 ---
Pulmonary Function Test Referral & Results Date Patient Seen: 07/01/22 Results: The spirometry demonstrates an FVC of 2.93 L which is 79% of predicted. The FEV1 was measured at 2.49 L which is 85% of predicted. The FEV1/FVC ratio was 85 which is 107% of predicted. Following the administration of bronchodilator there was a 14% improvement in FEV1 and a 39% improvement in FEF 25-75%. Lung volumes show an SVC of 2.85 L which is 84% of predicted. The diffusing capacity was measured at 19.83 which is 73% of predicted. No hemoglobin value was provided, so no correction for potential anemia could be made, if appropriate. The maximum voluntary ventilation was reduced Interpretation: This study demonstrates possibly mild obstructive lung disease based on reduction FEV1 although FEV1/FVC ratio is preserved there is also evidence of benefit following bronchodilator as above There is a minimal reduction in lung volumes suggesting the presence of minimal restrictive lung disease as well There is also more moderate reduction diffusing capacity suggesting element of disease at the capillary alveolar level Clinical correlation suggested
== END ==
PROVIDERS: PCP Family Medicine; Referring Provider Family Medicine; Visit Provider Family Medicine
DX: J84.9 Interstitial pulmonary disease, unspecified (principal); R06.09 Other forms of dyspnea; R05.3 Chronic cough
CPT/HCPCS: 94060; 94726; 94729

== ENCOUNTER → 2022-07-06 07:29 | Outpatient (CLI) | payer OTHER, SELFPAY | PROVIDERS: PCP Family Medicine; Visit Provider Nurse Practitioner Family | DX: R30.0 Dysuria (principal); N89.8 Other specified noninflammatory disorders of vagina | CPT/HCPCS: 87077; 87086; 87186; 87210 ==

== ENCOUNTER → 2023-10-30 11:01 | Outpatient (CLI) | payer SELFPAY ==
[2023-10-30 12:25] LABS: Appearance Urine UA CLEAR; Bilirubin Urine UA NEGATIVE (NEGATIVE); Color Urine UA YELLOW; Glucose Urine UA NEGATIVE (Negative); Ketones Urine UA NEGATIVE (NEGATIVE); Leukocyte Esterase Urine UA TRACE (NEGATIVE); Nitrite Urine UA NEGATIVE (Negative); Occult Blood Urine UA TRACE-INTACT (Negative); Protein Urine UA NEGATIVE (Negative); Specific Gravity Urine UA <=1.005 (1.000-1.035); Urobilinogen Urine UA 0.2 E.U./dL (0.2)
[2023-10-30 12:49] LABS: Bacteria Urine Moderate (10-30); RBC Urine 1-5/HPF (0-5/HPF); Squamous Epithelial Cell Urine 1-5 /HPF (0-5/HPF); Urine Volume 10mL (spun); WBC Urine 1-5/HPF (0-5/HPF)
[2023-10-30 12:50] LABS: Culture Indicated Urine Specimen Cultured
== END ==
PROVIDERS: PCP Family Medicine; Visit Provider Student in an Organized Health Care Education/Training Program
DX: N39.0 Urinary tract infection, site not specified (principal)
CPT/HCPCS: 81001; 87086

== ENCOUNTER → 2023-12-12 08:00 | Outpatient (CLI) | payer SELFPAY ==
[2023-12-12 08:52] LABS: COVID-19 CEPHEID 4-PLEX PCR Negative (Negative); Influenza A - CEPHEID Flu A NEGATIVE (NEGATIVE); Influenza B - CEPHEID Flu B NEGATIVE (NEGATIVE); Respiratory Syncytial Virus Negative (Negative)
== END ==
PROVIDERS: PCP Family Medicine; Visit Provider Nurse Practitioner Family
DX: R05.1 Acute cough (principal); J02.9 Acute pharyngitis, unspecified
CPT/HCPCS: 0241U; 87070